=== PATIENT | male | born 1960 | race Caucasian/White ===

== ENCOUNTER 2023-08-27 09:11 | Inpatient (IN) | payer BC ==
[~2023-08-27] VITALS: Ht 177.8 cm; Wt 100.7 kg
[2023-08-27 09:20] VITALS: BP_SYST 125; PULSE 118; RESP 18; TEMP 98.5; O2SAT 98
[2023-08-27 09:58] LABS: BASOPHILS # (AUTO) 0.1 K/uL (0.0-0.2); BASOPHILS % (AUTO) 0.3 % (0.0-2.0); HEMATOCRIT 37.4 % (36-54); HEMOGLOBIN 12.4 g/dL (14.0-18.0); LYMPHOCYTES # (AUTO) 1.5 K/uL (1.0-5.5); LYMPHOCYTES % (AUTO) 8.7 % (20.5-51.5); MEAN CORPUSCULAR HEMOGLOBIN 32 pg (27-31); MEAN CORPUSCULAR HGB CONC 33 % (32-36); MEAN CORPUSCULAR VOLUME 95 fL (79.0-98.0); MONOCYTES # (AUTO) 0.9 K/uL (0.0-1.0); MONOCYTES % (AUTO) 5.2 % (1.7-9.3); NEUTROPHILS # (AUTO) 15.3 K/uL (1.8-7.7); NEUTROPHILS % (AUTO) 85.8 % (40.0-70.0); PLATELET COUNT (AUTO) 450 K/uL (130-430); RED BLOOD CELL COUNT(AUTO) 3.93 MIL/uL (4.2-6.2); RED CELL DISTRIBUTION WIDTH 13.2 % (9.0-15.0); WHITE BLOOD COUNT (AUTO) 17.8 K/uL (4.8-10.8)
[2023-08-27 10:22] LABS: ALBUMIN 3.1 g/dL (3.4-4.8); BILIRUBIN,DIRECT 0.3 mg/dL (0.0-0.3); CALCIUM 10.1 mg/dL (8.4-11.0); CREATININE 1.03 mg/dL (0.55-1.30); POTASSIUM 4.9 mmol/L (3.5-5.1); TOTAL BILIRUBIN 1.2 mg/dL (0.0-1.0); TOTAL PROTEIN, SERUM 7.2 g/dL (6.4-8.3)
[2023-08-27] MEDS: KETOROLAC TROMETHAMINE 30 MG VIAL IM ONE (10:28)
[2023-08-27] MEDS ORDERED: IBUP-1969 PO (12:46)
[2023-08-27] MEDS ORDERED: POLY17PO4 PO (12:46)
[2023-08-27] MEDS ORDERED: DOCU-144 PO (12:46)
[2023-08-27] MEDS ORDERED: APIX5TAB PO (12:46)
[2023-08-27] MEDS ORDERED: PITA2TAB PO (12:46)
[2023-08-27] MEDS ORDERED: ACET500P25 (12:46)
[2023-08-27] MEDS ORDERED: HYDR-3927 PO (12:46)
[2023-08-27] MEDS ORDERED: TRAM50TA2 PO (12:46)
[2023-08-27] MEDS ORDERED: METO25TA6 PO (12:46)
[2023-08-27] MEDS ORDERED: BENA-6 PO (12:46)
[2023-08-27 12:50] VITALS: BP_SYST 121; PULSE 110; RESP 20; TEMP 99
[2023-08-27 13:00] VITALS: O2SAT 97
[2023-08-27] MEDS: D5/0.45 NS 1,000 ML IV SCH (15:49)
[2023-08-27 16:14] VITALS: BP_SYST 129; PULSE 83; RESP 18; TEMP 99.3; O2SAT 96
[2023-08-27] MEDS: MORPHINE 2 MG/ML INJ. SYRINGE IVP PRN (19:11)
[2023-08-27 20:00] VITALS: BP_SYST 124; PULSE 100; RESP 20; TEMP 97.2; O2SAT 94
[2023-08-27] MEDS: MORPHINE 4 MG INJ. 4 MG/ML VIAL IVP PRN (23:05)
[2023-08-28 04:00] VITALS: BP_SYST 122; PULSE 102; RESP 16; TEMP 98.6; O2SAT 99
[2023-08-28 07:00] VITALS: O2SAT 97
[2023-08-28] MEDS ORDERED: LORazepam 2 MG/ML VIAL IVP PRN (07:30)
[2023-08-28] MEDS ORDERED: ONDANSETRON HCL 4 MG/2 ML VIAL IVP PRN (07:30)
[2023-08-28 08:00] VITALS: BP_SYST 114; PULSE 95; RESP 18; TEMP 97.8; O2SAT 96
[2023-08-28 09:22] LABS: BASOPHILS % (AUTO) 0.1 % (0.0-2.0); EOSINOPHILS % (AUTO) 0.2 % (0.0-4.0); HEMATOCRIT 34.1 % (36-54); HEMOGLOBIN 11.4 g/dL (14.0-18.0); LYMPHOCYTES # (AUTO) 1.7 K/uL (1.0-5.5); LYMPHOCYTES % (AUTO) 11.9 % (20.5-51.5); MEAN CORPUSCULAR HEMOGLOBIN 32 pg (27-31); MEAN CORPUSCULAR HGB CONC 34 % (32-36); MEAN CORPUSCULAR VOLUME 96 fL (79.0-98.0); MONOCYTES # (AUTO) 0.7 K/uL (0.0-1.0); MONOCYTES % (AUTO) 4.6 % (1.7-9.3); NEUTROPHILS # (AUTO) 12.2 K/uL (1.8-7.7); NEUTROPHILS % (AUTO) 83.2 % (40.0-70.0); PLATELET COUNT (AUTO) 365 K/uL (130-430); RED BLOOD CELL COUNT(AUTO) 3.56 MIL/uL (4.2-6.2); RED CELL DISTRIBUTION WIDTH 13.2 % (9.0-15.0); WHITE BLOOD COUNT (AUTO) 14.6 K/uL (4.8-10.8)
[2023-08-28 09:32] LABS: ALBUMIN 2.5 g/dL (3.4-4.8); CALCIUM 9.3 mg/dL (8.4-11.0); CREATININE 0.9 mg/dL (0.55-1.30); POTASSIUM 4.4 mmol/L (3.5-5.1); TOTAL PROTEIN, SERUM 6.2 g/dL (6.4-8.3)
[2023-08-28 12:00] VITALS: BP_SYST 117; PULSE 95; RESP 18; TEMP 97.8; O2SAT 98
[2023-08-28 13:01] LABS: INR 1.1 (0.80-1.20); PROTHROMBIN TIME 11.8 SECS (9.5-12.5)
[2023-08-28] MEDS: cefTRIAXone 1 GM in D5W 50 ML IV SCH (14:46)
[2023-08-28 16:00] VITALS: BP_SYST 108; PULSE 108; RESP 18; TEMP 97.6; O2SAT 98
[2023-08-28] MEDS: METOPROLOL SUCCINATE 25 MG TAB.SR.24H (TOPROL XL) PO ONE (20:09)
[2023-08-28 20:15] VITALS: BP_SYST 110; PULSE 155; RESP 18; TEMP 97.8; O2SAT 97
[2023-08-28] MEDS: dilTIAZem HCL IVP 5 MG/ML VIAL IVP PRN (23:54)
[2023-08-29 00:15] VITALS: BP_SYST 120; PULSE 97; RESP 18; TEMP 98.2; O2SAT 97
[2023-08-29 06:54] LABS: BASOPHILS % (AUTO) 0.2 % (0.0-2.0); EOSINOPHILS # (AUTO) 0.1 K/uL (0.0-0.4); HEMATOCRIT 34.1 % (36-54); HEMOGLOBIN 11.6 g/dL (14.0-18.0); LYMPHOCYTES # (AUTO) 1.3 K/uL (1.0-5.5); LYMPHOCYTES % (AUTO) 10.5 % (20.5-51.5); MEAN CORPUSCULAR HEMOGLOBIN 32 pg (27-31); MEAN CORPUSCULAR HGB CONC 34 % (32-36); MEAN CORPUSCULAR VOLUME 95 fL (79.0-98.0); MONOCYTES # (AUTO) 0.6 K/uL (0.0-1.0); MONOCYTES % (AUTO) 4.7 % (1.7-9.3); NEUTROPHILS # (AUTO) 10.6 K/uL (1.8-7.7); NEUTROPHILS % (AUTO) 83.6 % (40.0-70.0); PLATELET COUNT (AUTO) 339 K/uL (130-430); RED BLOOD CELL COUNT(AUTO) 3.58 MIL/uL (4.2-6.2); RED CELL DISTRIBUTION WIDTH 13.4 % (9.0-15.0); WHITE BLOOD COUNT (AUTO) 12.7 K/uL (4.8-10.8)
[2023-08-29 07:27] LABS: ALBUMIN 2.3 g/dL (3.4-4.8); CALCIUM 9.6 mg/dL (8.4-11.0); CREATININE 0.93 mg/dL (0.55-1.30); POTASSIUM 4.8 mmol/L (3.5-5.1); TOTAL BILIRUBIN 4.1 mg/dL (0.0-1.0); TOTAL PROTEIN, SERUM 6.3 g/dL (6.4-8.3)
[2023-08-29 07:55] VITALS: BP_SYST 124; PULSE 100; RESP 16; TEMP 97; O2SAT 94
[2023-08-29 08:00] VITALS: O2SAT 96
[2023-08-29 08:12] LABS: BILIRUBIN,URINE 3+ (NEGATIVE); BLOOD, URINE 2+ (NEGATIVE); CLARITY/URINE CLEAR (CLEAR); GLUCOSE,URINE TRACE (NEGATIVE); KETONES,URINE TRACE (NEGATIVE); LEUKOCYTE ESTERASE ,URINE TRACE (NEGATIVE); NITRITE, URINE NEGATIVE (NEGATIVE); PH,URINE 6.5 (5.0-8.0); PROTEIN URINE 2+ (NEGATIVE)
[2023-08-29 08:31] LABS: UROBILINOGEN,URINE >=8 (0.2-1.0)
[2023-08-29 08:38] LABS: BACTERIA,URINE None Seen /HPF (None Seen)
[2023-08-29 08:39] LABS: COLOR,URINE AMBER (YELLOW)
[2023-08-29 12:00] VITALS: BP_SYST 130; PULSE 90; RESP 16; TEMP 98; O2SAT 96
[2023-08-29] MEDS ORDERED: *LOVENOX 1MG/KG Q12H/PHARMACY XX PRN (12:15)
[2023-08-29] MEDS ORDERED: ENOXAPARIN SODIUM 100 MG/ML SYRINGE SUBCUT SCH (13:00)
[2023-08-29] MEDS ORDERED: *HEPARIN PER PHARMACY XX PRN (14:30)
[2023-08-29] MEDS ORDERED: HEPARIN SODIUM,PORCINE 3000 UNITS/0.6 ML BOLUS IVP PRN (15:00)
[2023-08-29 17:30] VITALS: BP_SYST 135; PULSE 80; RESP 16; TEMP 97; O2SAT 96
[2023-08-29] MEDS: METOPROLOL TARTRATE 50 MG TABLET PO ONE (17:38)
[2023-08-29] MEDS: HEPARIN SODIUM,PORCINE 5,000 UNITS/ML VIAL IV ONE (17:41)
[2023-08-29] MEDS: HEPARIN 25,000 UNITS in 250 ML PREMIX IV PRN (17:43)
[2023-08-29 20:00] VITALS: BP_SYST 124; PULSE 93; RESP 18; TEMP 97.8; O2SAT 93
[2023-08-29] MEDS: METOPROLOL TARTRATE 50 MG TABLET PO SCH (20:45)
[2023-08-29] MEDS: metroNIDAZOLE 500 mg/NS 100 ML IV SCH (20:47)
[2023-08-29] MEDS: LOPERAMIDE HCL 2 MG CAPSULE PO PRN (21:27)
[2023-08-30 00:30] VITALS: BP_SYST 131; PULSE 92; RESP 18; TEMP 97.8; O2SAT 95
[2023-08-30] MEDS: HEPARIN SODIUM,PORCINE 2000 UNITS/0.4 ML BOLUS IVP PRN (01:50)
[2023-08-30 07:30] VITALS: O2SAT 98
[2023-08-30 08:15] LABS: BASOPHILS % (AUTO) 0.4 % (0.0-2.0); EOSINOPHILS # (AUTO) 0.2 K/uL (0.0-0.4); EOSINOPHILS % (AUTO) 1.6 % (0.0-4.0); HEMATOCRIT 33.7 % (36-54); HEMOGLOBIN 11.2 g/dL (14.0-18.0); LYMPHOCYTES # (AUTO) 1.4 K/uL (1.0-5.5); LYMPHOCYTES % (AUTO) 14.4 % (20.5-51.5); MEAN CORPUSCULAR HEMOGLOBIN 32 pg (27-31); MEAN CORPUSCULAR HGB CONC 33 % (32-36); MEAN CORPUSCULAR VOLUME 96 fL (79.0-98.0); MONOCYTES # (AUTO) 0.5 K/uL (0.0-1.0); NEUTROPHILS # (AUTO) 7.9 K/uL (1.8-7.7); NEUTROPHILS % (AUTO) 78.6 % (40.0-70.0); PLATELET COUNT (AUTO) 304 K/uL (130-430); RED BLOOD CELL COUNT(AUTO) 3.53 MIL/uL (4.2-6.2); RED CELL DISTRIBUTION WIDTH 13.9 % (9.0-15.0)
[2023-08-30 08:27] LABS: ERYTHROCYTE SEDIMENTATION RATE 94 MM/HR (0-15)
[2023-08-30 08:35] LABS: ALBUMIN 2.3 g/dL (3.4-4.8); CALCIUM 8.6 mg/dL (8.4-11.0); CREATININE 0.84 mg/dL (0.55-1.30); POTASSIUM 4.4 mmol/L (3.5-5.1); TOTAL BILIRUBIN 1.9 mg/dL (0.0-1.0); TOTAL PROTEIN, SERUM 6.4 g/dL (6.4-8.3)
[2023-08-30] MEDS: MIDAZOLAM HCL 5 MG/5 ML VIAL ONE (08:54)
[2023-08-30] MEDS: fentaNYL CITRATE/PF 100 MCG/2 ML AMP ONE (08:54)
[2023-08-30] MEDS ORDERED: LIDOCAINE 1% 10 MG/ML, 20 ML MDV ONE (08:57)
[2023-08-30] MEDS ORDERED: ONDANSETRON HCL 4 MG/2 ML VIAL IVP PRN (10:15)
[2023-08-30] MEDS ORDERED: MORPHINE 4 MG INJ. 4 MG/ML VIAL IVP PRN ×3 (10:15)
[2023-08-30] MEDS ORDERED: METOCLOPRAMIDE HCL 10 MG/2 ML VIAL IVP PRN (10:15)
[2023-08-30] MEDS ORDERED: KETOROLAC TROMETHAMINE 30 MG VIAL IVP PRN (14:45)
[2023-08-30 15:09] VITALS: BP_SYST 109; PULSE 49; RESP 16; TEMP 99.1; O2SAT 96
[2023-08-30] MEDS: HYDROmorphone 1 MG/ML INJ. CARTRIDGE IVP ONE (15:27)
[2023-08-30 20:03] VITALS: BP_SYST 139; PULSE 75; RESP 19; TEMP 97.1; O2SAT 95
[2023-08-30] MEDS: APIXABAN 2.5 MG TABLET PO SCH (20:34)
[2023-08-31] VITALS: BP_SYST 118; PULSE 87; RESP 17; TEMP 98; O2SAT 99
[2023-08-31 05:15] LABS: BASOPHILS % (AUTO) 0.7 % (0.0-2.0); EOSINOPHILS # (AUTO) 0.3 K/uL (0.0-0.4); EOSINOPHILS % (AUTO) 4.4 % (0.0-4.0); HEMATOCRIT 31.1 % (36-54); HEMOGLOBIN 10.4 g/dL (14.0-18.0); LYMPHOCYTES # (AUTO) 2.3 K/uL (1.0-5.5); LYMPHOCYTES % (AUTO) 32.1 % (20.5-51.5); MEAN CORPUSCULAR HEMOGLOBIN 32 pg (27-31); MEAN CORPUSCULAR HGB CONC 34 % (32-36); MEAN CORPUSCULAR VOLUME 95 fL (79.0-98.0); MONOCYTES # (AUTO) 0.5 K/uL (0.0-1.0); NEUTROPHILS # (AUTO) 3.9 K/uL (1.8-7.7); NEUTROPHILS % (AUTO) 55.8 % (40.0-70.0); PLATELET COUNT (AUTO) 272 K/uL (130-430); RED BLOOD CELL COUNT(AUTO) 3.28 MIL/uL (4.2-6.2); RED CELL DISTRIBUTION WIDTH 13.6 % (9.0-15.0); WHITE BLOOD COUNT (AUTO) 7.1 K/uL (4.8-10.8)
[2023-08-31 05:23] LABS: ERYTHROCYTE SEDIMENTATION RATE 93 MM/HR (0-15)
[2023-08-31 05:47] LABS: CALCIUM 8.7 mg/dL (8.4-11.0); CREATININE 0.76 mg/dL (0.55-1.30); POTASSIUM 3.2 mmol/L (3.5-5.1); TOTAL BILIRUBIN 1.3 mg/dL (0.0-1.0); TOTAL PROTEIN, SERUM 5.9 g/dL (6.4-8.3)
[2023-08-31 08:00] VITALS: O2SAT 95
[2023-08-31 08:02] VITALS: BP_SYST 126; PULSE 90; RESP 17; TEMP 97.6; O2SAT 95
[2023-08-31 11:13] VITALS: BP_SYST 136; PULSE 85; RESP 16; TEMP 97; O2SAT 97
[2023-08-31] MEDS: POTASSIUM CHLORIDE 20 MEQ TABLET.ER PO ONE (11:34)
[2023-08-31] MEDS: NORMAL SALINE 5 ML DISP.SYRIN IVF SCH (14:03)
[2023-08-31 14:56] VITALS: BP_SYST 141; PULSE 91; RESP 16; TEMP 96.9; O2SAT 100
[2023-08-31 20:00] VITALS: BP_SYST 126; PULSE 98; RESP 20; TEMP 98; O2SAT 94
[2023-09-01] VITALS (7 sets, daily range): BP systolic 126–153; PULSE 80–92; RESP 16–18; TEMP 97.6–98.7; O2SAT 94–98
[2023-09-01 06:08] LABS: BASOPHILS # (AUTO) 0.1 K/uL (0.0-0.2); BASOPHILS % (AUTO) 0.8 % (0.0-2.0); EOSINOPHILS # (AUTO) 0.3 K/uL (0.0-0.4); HEMATOCRIT 32.6 % (36-54); HEMOGLOBIN 10.9 g/dL (14.0-18.0); LYMPHOCYTES % (AUTO) 39.9 % (20.5-51.5); MEAN CORPUSCULAR HEMOGLOBIN 32 pg (27-31); MEAN CORPUSCULAR HGB CONC 34 % (32-36); MEAN CORPUSCULAR VOLUME 94 fL (79.0-98.0); MONOCYTES # (AUTO) 0.5 K/uL (0.0-1.0); MONOCYTES % (AUTO) 6.5 % (1.7-9.3); NEUTROPHILS # (AUTO) 3.7 K/uL (1.8-7.7); NEUTROPHILS % (AUTO) 48.8 % (40.0-70.0); PLATELET COUNT (AUTO) 281 K/uL (130-430); RED BLOOD CELL COUNT(AUTO) 3.46 MIL/uL (4.2-6.2); RED CELL DISTRIBUTION WIDTH 13.4 % (9.0-15.0); WHITE BLOOD COUNT (AUTO) 7.5 K/uL (4.8-10.8)
[2023-09-01 06:12] LABS: ERYTHROCYTE SEDIMENTATION RATE 85 MM/HR (0-15)
[2023-09-01 06:49] LABS: CALCIUM 8.8 mg/dL (8.4-11.0); CREATININE 0.8 mg/dL (0.55-1.30); POTASSIUM 3.3 mmol/L (3.5-5.1); TOTAL BILIRUBIN 0.8 mg/dL (0.0-1.0); TOTAL PROTEIN, SERUM 5.9 g/dL (6.4-8.3)
[2023-09-01] MEDS: POTASSIUM CHLORIDE 20 MEQ TABLET.ER PO ONE (11:19)
[2023-09-02 00:05] VITALS: BP_SYST 131; PULSE 81; RESP 15; TEMP 97.5; O2SAT 83
[2023-09-02 00:20] VITALS: BP_SYST 129; PULSE 81; RESP 18; TEMP 97.7; O2SAT 95
[2023-09-02 05:41] LABS: BASOPHILS # (AUTO) 0.1 K/uL (0.0-0.2); BASOPHILS % (AUTO) 0.5 % (0.0-2.0); EOSINOPHILS # (AUTO) 0.4 K/uL (0.0-0.4); EOSINOPHILS % (AUTO) 3.9 % (0.0-4.0); HEMATOCRIT 33.7 % (36-54); HEMOGLOBIN 11.2 g/dL (14.0-18.0); LYMPHOCYTES # (AUTO) 4.3 K/uL (1.0-5.5); LYMPHOCYTES % (AUTO) 44.1 % (20.5-51.5); MEAN CORPUSCULAR HEMOGLOBIN 31 pg (27-31); MEAN CORPUSCULAR HGB CONC 33 % (32-36); MEAN CORPUSCULAR VOLUME 95 fL (79.0-98.0); MONOCYTES # (AUTO) 0.6 K/uL (0.0-1.0); MONOCYTES % (AUTO) 6.2 % (1.7-9.3); NEUTROPHILS # (AUTO) 4.4 K/uL (1.8-7.7); NEUTROPHILS % (AUTO) 45.3 % (40.0-70.0); PLATELET COUNT (AUTO) 296 K/uL (130-430); RED BLOOD CELL COUNT(AUTO) 3.57 MIL/uL (4.2-6.2); RED CELL DISTRIBUTION WIDTH 13.7 % (9.0-15.0); WHITE BLOOD COUNT (AUTO) 9.8 K/uL (4.8-10.8)
[2023-09-02 05:47] LABS: ERYTHROCYTE SEDIMENTATION RATE 80 MM/HR (0-15)
[2023-09-02 05:58] LABS: ALBUMIN 2.3 g/dL (3.4-4.8); CALCIUM 8.9 mg/dL (8.4-11.0); CREATININE 0.79 mg/dL (0.55-1.30); POTASSIUM 3.8 mmol/L (3.5-5.1); TOTAL BILIRUBIN 0.8 mg/dL (0.0-1.0); TOTAL PROTEIN, SERUM 6.3 g/dL (6.4-8.3)
[2023-09-02 08:00] VITALS: BP_SYST 124; PULSE 96; RESP 18; TEMP 97.5; O2SAT 94
[2023-09-02] MEDS: POTASSIUM CHLORIDE 20 MEQ TABLET.ER PO SCH (08:54)
[2023-09-02] MEDS ORDERED: APIX5TAB PO (10:48)
[2023-09-02] MEDS ORDERED: METO-442 PO (10:48)
[2023-09-02] MEDS ORDERED: METR-154 PO (10:48)
[2023-09-02] MEDS ORDERED: LEVO-62 PO (10:48)
[2023-09-02 12:37] VITALS: BP_SYST 126; PULSE 95; RESP 17; TEMP 97.6; O2SAT 95
[2023-09-02 14:09] VITALS: BP_SYST 127; PULSE 90; RESP 18; TEMP 97.5; O2SAT 95
== END 2023-09-02 15:55 | disposition home or self-care (01) | DRG 444 ==
LOC: SED 09:11 → SMU 11:27 → STU 08-28 20:01 → SMU 08-31 10:09
PROVIDERS: ADMIT Preventive Medicine Preventive Medicine/Occupational Environmental Medicine; ATTEND Preventive Medicine Preventive Medicine/Occupational Environmental Medicine
PROC: 0F943ZZ Drainage of Gallbladder, Percutaneous Approach (ICD-10-PCS; principal; 2023-08-27)
PROC: BF121ZZ Fluoroscopy of Gallbladder using Low Osmolar Contrast (ICD-10-PCS; 2023-08-27)
DX: K80.01 Calculus of gallbladder with acute cholecystitis with obstruction (principal); E43 Unspecified severe protein-calorie malnutrition; I82.412 Acute embolism and thrombosis of left femoral vein; I82.432 Acute embolism and thrombosis of left popliteal vein; E88.09 Other disorders of plasma-protein metabolism, not elsewhere classified; K57.30 Diverticulosis of large intestine without perforation or abscess without bleeding; E80.6 Other disorders of bilirubin metabolism; D75.839 Thrombocytosis, unspecified; D72.829 Elevated white blood cell count, unspecified; E87.6 Hypokalemia; E87.5 Hyperkalemia; K40.20 Bilateral inguinal hernia, without obstruction or gangrene, not specified as recurrent; D64.9 Anemia, unspecified; E66.9 Obesity, unspecified; K76.0 Fatty (change of) liver, not elsewhere classified; Z86.718 Personal history of other venous thrombosis and embolism; Z85.46 Personal history of malignant neoplasm of prostate; Z79.01 Long term (current) use of anticoagulants; Z79.891 Long term (current) use of opiate analgesic; Z79.899 Other long term (current) drug therapy; Z68.31 Body mass index [BMI] 31.0-31.9, adult
CPT/HCPCS: 36415; 74181; 76000; 76705; 76942; 78226; 80048; 80053; 80076; 81000; 81001; 81015; 83690; 85025; 85610; 85651; 85730; 86886; 86900; 86901; 87040; 87070; 87075; 87081; 93005; 93306; 93971; 96372; 96374; 99285; A9537; G0378; J0696; J1170; J1644; J1885; J2001; J2250; J2270; J2704; J3010; J3490; J7060; Q9967